=== PATIENT | male | born 1980 | race African-American/Black ===

== ENCOUNTER 2017-08-18 18:43 | Emergency (ER) | payer SELFPAY ==
--- NOTE | 2017-08-18 19:20 | ED.PDOC ---
History of Present Illness - General Chief Complaint: Problem Stated Complaint: possible exposure to STD Time Seen by Provider: 08/18/17 19:06 Source: patient Exam Limitations: no limitations - History of Present Illness Initial Comments: Patient presents after his sexual partner had cystitis and vaginal discharge. She was treated empirically for gonorrhea/chlamydia so the patient checked in to be tested and treated. He has not been symptomatic. He says he has had new sexual partners in the past few weeks. No other complaints. Timing/Duration: unsure Severity: mild Improving Factors: nothing Worsening Factors: nothing Associated Symptoms: denies symptoms Allergies/Adverse Reactions: Allergies NO KNOWN ALLERGY Allergy (Verified 04/10/17 08:19) Home Medications: Ambulatory Orders NK [NK] 08/18/17 Review of Systems - Review of Systems Constitutional: States: no symptoms reported EENTM: States: no symptoms reported Respiratory: States: no symptoms reported Cardiology: States: no symptoms reported Gastrointestinal/Abdominal: States: no symptoms reported Genitourinary: States: see HPI Musculoskeletal: States: no symptoms reported Skin: States: no symptoms reported Neurological: States: no symptoms reported Endocrine: States: no symptoms reported Hematologic/Lymphatic: States: no symptoms reported Past Medical History (General) - Patient Medical History Hx Seizures: No Hx Stroke: No Hx Asthma: No Hx of COPD: No Hx Congestive Heart Failure: No Hx Pacemaker: No Hx Hypertension: No Hx Diabetes: No Hx MRSA: No Surgical History: no surgical history - Vaccination History Hx Tetanus, Diphtheria Vaccination: Yes Hx Influenza Vaccination: Yes Hx Pneumococcal Vaccination: No - Social History Hx Tobacco Use: - May smoke once a month Hx Alcohol Use: Yes Hx Substance Use: No Hx Physical Abuse: No Hx Emotional Abuse: No - Triage Comment ED Triage Comment: Possible exposure to STD. Denies discharge, burning Family Medical History - Family History Mother Living Status: Still Living Hx Family Asthma: No Hx Family Congestive Heart Failure: No Hx Family Hypertension: No Hx Family Stroke: No Hx Cardiac Disease: No Hx Family Diabetes: No Hx Family Cancer: No Father Family History: No Known Physical Exam - Physical Exam General Appearance: Alert Respiratory: lungs clear Cardiovascular/Chest: normal peripheral pulses, regular rate, rhythm, no edema Gastrointestinal/Abdominal: normal bowel sounds, non tender, soft, other - Normal male genitalia. No discharges. Departure - Departure Clinical Impression: High risk sexual behavior Disposition: Discharge to Home or Self Care Condition: Good Departure Forms: ED Discharge - Pt. Copy, Patient Portal Self Enrollment Diet: resume usual diet Activity: increase activity as tolerated Referrals: UNKNOWN,PHYSICIAN [Primary Care Provider] - 1-2 Weeks Home Medications: Ambulatory Orders NK [NK] 08/18/17 Additional Instructions: Call for HIV and gonorrhea/chlamydia results in 3 days. Abstain from sexual activity until you know your results. Notify sexual partners of any positive results. See your regular doctor in two weeks to be tested for gonorrhea/ chlamydia cure, if positive.
[2017-08-18] MEDS ORDERED: AZITHROMYCIN 250 MG TAB PO ONE (19:26)
[2017-08-18 19:57] VITALS: BP 120/79; TEMP 97.5
== END 2017-08-18 19:56 | disposition home or self-care (01) ==
LOC: ER 18:43
DX: Z72.51 High risk heterosexual behavior (principal)
CPT/HCPCS: 36415; 81001; 86703; 87491; 87591; J0696; Q0144